=== PATIENT | female | born 1975 | race Caucasian/White ===

== ENCOUNTER 2016-11-08 19:34 | Emergency (ER) | payer OTHER ==
[~2016-11-08 19:34] MED LIST: ALDACTONE PO; BACTRIM DS TABL1 TA1 PO; CHANTIX1 MG PO; CIPRO PO; EFFEXOR75 MG PO; FIORINAL 50-321 EACH PO; FIORINAL CAPSUL1 CAP; IBUPROFEN PO; IRON325 ( 651 PO; KEFLEX PO; KLONOPIN0.5 MG PO; PHENERGAN PO; PROMETRIUM PO; REQUIP2 MG PO; TOPAMAX PO; TYLOX 5/500 CAP1 CAP PO; VICODIN 5/500 T1 TAB PO; VITAMIN D1000 UNI2 PO
[2016-11-08] MEDS ORDERED: GABAPENTIN600 MG PO (19:47)
[2016-11-08] MEDS ORDERED: TORADOL10 MG (19:47)
[2016-11-08] MEDS ORDERED: LORTAB 7.5-3251 EACH PO (19:47)
[2016-11-08] MEDS ORDERED: PHENERGAN (19:47)
[2016-11-08] MEDS ORDERED: BOTOX COSMETI50 UNIT (19:53)
== END 2016-11-08 21:09 | disposition home or self-care (01) ==
LOC: SED 19:34
DX: G43.909 Migraine, unspecified, not intractable, without status migrainosus (principal); Z90.710 Acquired absence of both cervix and uterus
CPT/HCPCS: 96374; 96375; 99283; J1170; J2405